=== PATIENT | female | born 1985 | race American Indian/Alaskan Native ===

== ENCOUNTER 2017-02-27 14:15 | Outpatient (CLI) | payer MEDICAID ==
--- NOTE | 2017-02-27 15:10 | XRay Report ---
SUPINE KUB: History: Constipation. The abdominal gas pattern is unremarkable. No masses or organomegaly is identified and there is no gross evidence of free air or fluid. No significant soft tissue calcifications are noted. Cholecystectomy clips and bilateral tubal ligation clips are noted. IMPRESSION: Unremarkable abdomen.
== END 2017-02-27 14:16 | disposition home or self-care (01) ==
LOC: XRAY 14:15
PROVIDERS: ATTEND Internal Medicine Gastroenterology
DX: K59.00 Constipation, unspecified (principal); Z90.49 Acquired absence of other specified parts of digestive tract
CPT/HCPCS: 74000